=== PATIENT | male | born 1960 | race Caucasian/White ===

== ENCOUNTER 2018-06-18 04:03 | Emergency (ER) | payer BC ==
[2018-06-18] MEDS ORDERED: Metoprolol Tartrate 25 MG TAB ONE (05:18)
[2018-06-18 05:30] LABS: Troponin I Less than 0.010 ng/mL (< 0.028)
== END 2018-06-18 06:04 | disposition home or self-care (01) ==
LOC: ERS 04:03
DX: I48.91 Unspecified atrial fibrillation (principal); I48.0 Paroxysmal atrial fibrillation; Z87.891 Personal history of nicotine dependence; Z79.82 Long term (current) use of aspirin
CPT/HCPCS: 93005